=== PATIENT | female | born 1935 | race Caucasian/White ===

== ENCOUNTER 2018-02-07 06:07 | Inpatient (IN) ==
[2018-02-07] MEDS ORDERED: Chlorhexidine Gluconate 2% 1 Pack (2 Cloths) TOPICAL ONE (06:26)
[2018-02-07] MEDS ORDERED: Metoprolol Tartrate 25 MG Tablet PO ONE (06:28)
[2018-02-07] MEDS ORDERED: ceFAZolin 2 GM IV; once IV.SIG PRN (06:32)
[2018-02-07] MEDS ORDERED: Sodium Chlor 0.9% Inj 500 ML IV.SIG SCH (07:00)
[2018-02-07] MEDS ORDERED: Bupivacaine/Epinephrine Inj 0.25% 50 ML Vial ONE (08:14)
[2018-02-07] MEDS ORDERED: Normosol-R pH 7.4 Inj 1,000 ML IV.CONT ONE (09:02)
[2018-02-07] MEDS ORDERED: Glycopyrrolate Inj 1 MG/5 ML Syringe IV.PUSH ONE (09:02)
[2018-02-07] MEDS ORDERED: hydrALAZINE HCl Inj 20 MG/ML Vial IV.PUSH ONE (09:02)
[2018-02-07] MEDS ORDERED: Neostigmine Inj 5 MG/5 ML Syringe IV.PUSH ONE (09:02)
[2018-02-07] MEDS ORDERED: Metoprolol Inj 5 MG/5 ML Vial IV.PUSH ONE (09:02)
[2018-02-07] MEDS ORDERED: Lidocaine PF 1% Inj 5 ML Syringe OTHER ONE (09:02)
[2018-02-07] MEDS ORDERED: Bupivacaine Liposomal PF 1.3% Inj 20 ML Vial ONE (09:05)
[2018-02-07] MEDS ORDERED: fentaNYL Citrate Inj 100 MCG/2 ML Ampul ONE (11:52)
[2018-02-07] MEDS ORDERED: *Meperidine Inj 25 MG/ML Vial PERIprocedural Use ONLY ONE (12:02)
[2018-02-07] MEDS ORDERED: *morphine SULFATE 4 MG/ML PERIprocedure ONLY ONE (12:28)
[2018-02-07] MEDS ORDERED: Ketorolac Inj 30 MG/ML (IVP) Vial ONE (12:59)
[2018-02-07] MEDS ORDERED: Ketorolac Inj 30 MG/ML (IVP) Vial IV.PUSH ONE (13:20)
[2018-02-07] MEDS ORDERED: Morphine Inj 4 MG/ML Vial IV.PUSH PRN ×2 (13:20→13:22)
--- NOTE | 2018-02-07 13:37 | MP ---
cc: Edison Potts MD DATE OF OPERATION: 02/07/2018 PREOPERATIVE DIAGNOSIS: Umbilical hernia. POSTOPERATIVE DIAGNOSIS: Umbilical hernia. PROCEDURE PERFORMED: Laparoscopic repair of umbilical hernia with Ventralight ST mesh and Echo deployment system. SURGEON: Edison Potts MD [employer]: [employer]. ANESTHESIA: General. OPERATIVE FINDINGS: The patient was found to have a 5 cm umbilical hernia with no evidence of incarcerated viscera. There was quite a large hernia sac, which was left in place. No other abnormalities were noted. DESCRIPTION OF PROCEDURE: The patient was brought to the operating room, and after satisfactory general endotracheal anesthesia was obtained, the abdomen was prepped and draped in the usual sterile fashion. An [place] drape was placed across the abdomen, and then the skin was anesthetized with 0.5% Marcaine with epinephrine. A small incision was made in the left subcostal region and by blunt dissection, the peritoneal cavity was entered, after which a balloon tipped trocar was placed within the peritoneal cavity and the balloon engaged. The abdomen was then insufflated to 15 mmHg using carbon dioxide. The camera was inserted and visceral injury inspected for, with none being identified. Under direct visualization, a 5 port was placed in the left lower quadrant and two 5 ports in the right upper and lower quadrants, all under direct visualization. The hernia was visualized and there was seen to be quite a bit of fatty tissue adherent to the peritoneal surface inferior to and superior to the hernia. This fatty tissue was mostly taken down with the Harmonic scalpel with excellent hemostasis. After clearing a wide enough area of peritoneum, the 6 x [address] mesh was selected. The mesh was appropriately furled and wetted with saline after which it was placed within the peritoneal cavity and unfurled without problem. The insufflation tubing was brought into close contact with the anterior abdominal wall in the proper location and a small defect created in the skin, through which a [place] suture passer was inserted into the peritoneal cavity. The tubing was grasped and brought out to the surface where upon the inflatable back bone was insufflated with air to allow deployment of the mesh. After deployment and positioning of the mesh, which was accomplished without problem, the mesh was tacked in 4 quadrants using AbsorbaTacks without any issues. The mesh backbone was then removed and the remainder of the mesh was tacked into place circumferentially in a double crown effect using the AbsorbaTacks to ensure that the mesh was in close contact with the peritoneal surface throughout its placement. Once the mesh had been completely and satisfactorily placed in this fashion, the area was checked for hemostasis, which was seen to be satisfactory. The hernia defect was palpated and seemed to be well covered by the mesh. The carbon dioxide was then vented as completely as possible in the atmosphere, after which the ports were removed and the 12 mm fascial defect in the left upper quadrant closed with 0 Vicryl sutures for the fascia. The skin defects were all closed with interrupted 4-0 PDS subcuticular stitches. Steri-Strips were applied and the patient was then awakened and taken from the operating room, in satisfactory condition, having tolerated the procedure. ESTIMATED BLOOD LOSS: Less than 10 mL. The instrument, sponge, and needle counts were reported as being correct x 2 at then end of the procedure. MD CHICHI Betancourt/beulah , 01:04 PM , 01:12 PM
--- NOTE | 2018-02-08 16:24 | P.PNGS ---
Subjective Patient reports: no new complaints, pain is less, tolerating liquids well, voiding w/o difficulty, flatus (Other than being hungry and slightly sore, she is doing well and has no other complaints.) Physical Exam Vital signs: Vital Signs 02/08/18 00:00 02/08/18 04:00 02/08/18 08:00 Temperature 98.3 F 98.1 F 98.4 F Pulse Rate 104 H 99 H 94 H Respiratory Rate 18 19 17 Blood Pressure 158/77 H 115/68 148/72 H Pulse Oximetry 95 92 L 90 L 02/08/18 12:00 Temperature 98.4 F Pulse Rate 97 H Respiratory Rate 17 Blood Pressure 117/67 Pulse Oximetry 90 L Intake & Output 02/07/18 02/08/18 02/08/18 18:59 06:59 18:59 Intake Total 2990 / 2990 400 / 400 Output Total 510 / 510 250 / 250 Balance 2480 / 2480 150 / 150 Weight 70.4 kg Intake: IV 150 / 150 Ofirmev Inj 1,000 mg In 100 ml 100 / 100 @ 400 mls/hr IV.SIG HITCH TECHNICIAN PRN Rx#:[id number] Ancef 2 GM Premix Inj 2 gm In 50 / 50 50 ml @ 100 mls/hr IV.SIG HITCH TECHNICIAN PRN Rx#:[id number] Oral 240 / 240 400 / 400 Anesthesia Amount 2600 / 2600 Output: Urine 250 / 250 Estimated Blood Loss 10 / 10 Urine Amount (Catheter) 500 / 500 Indwelling Urethral Catheter 500 / 500 Other: # Voids 0 # Bowel Movements 0 - Routine Respiratory Exam Comments: Her lungs are clear without rales or rhonchi or wheezes. - Routine Cardiovascular Exam Present: RRR - Routine Abdominal Exam Present: soft, tenderness (Her abdomen is soft and significant only for incisional tenderness. She has no guarding or rebound.) - Urinary Catheter Management Indwelling Urethral Catheter Cath placed during this visit: yes Reason for continuing: Hourly intake/output Insertion date: 02/07/18 Insertion time: :23 Assessment and Plan - Assessment (1) Status post umbilical hernia repair, follow-up exam Code(s): Z09 - Encounter for follow-up examination after completed treatment for conditions other than malignant neoplasm Status: Acute Plan: The patient is ready for discharge to the rehab facility. She is awaiting physical therapy evaluation prior to discharge. I plan to see her back in the office within 2 weeks. Discharge orders and instructions have been written.
[2018-02-08] MEDS ORDERED: Gabapentin 300 MG Capsule PO SCH (21:00)
[2018-02-08] MEDS ORDERED: Ezetimibe 10 MG Tablet PO SCH (21:00)
[2018-02-08] MEDS ORDERED: Acetaminophen 325 MG Tablet PO PRN (21:00)
[2018-02-08] MEDS: hydrALAZINE 10 MG Tablet PO SCH (22:11)
[2018-02-08] MEDS: Metoprolol Tartrate 50 MG Tablet PO SCH (22:11)
[2018-02-08] MEDS: Calcium/Vitamin D 250/125 MG Tablet PO SCH (22:14)
[2018-02-09] MEDS: hydrALAZINE 10 MG Tablet PO SCH (08:36)
[2018-02-09] MEDS: Calcium/Vitamin D 250/125 MG Tablet PO SCH (08:37)
[2018-02-09] MEDS: Metoprolol Tartrate 50 MG Tablet PO SCH (08:37)
[2018-02-09] MEDS ORDERED: Loratadine/Pseudoephedrine 12HR Tablet PO SCH (09:00)
[2018-02-09] MEDS ORDERED: Aspirin 325 MG Tablet PO SCH (09:00)
[2018-02-09] MEDS ORDERED: Celecoxib 200 MG Capsule PO SCH (09:00)
[2018-02-09 15:36] VITALS: BP 175/79; PULSE 83; RESP 17; TEMP 98.1; O2SAT 92
[2018-02-10] MEDS ORDERED: hydroCHLOROthiazide 25 MG Tablet PO SCH (09:00)
== END 2018-02-09 17:39 ==
LOC: HSDI 06:07 → N07 13:55
PROVIDERS: ADMIT Surgery; ATTEND Surgery